=== PATIENT | female | born 2000 ===

== ENCOUNTER 2019-07-25 20:30 | Emergency (ER) | payer OTHER ==
--- NOTE | 2019-07-25 21:25 | UC ---
Complaint Female HPI - HPI Summary HPI Summary: Ms. Vuong was started on Wellbutrin for depression 2 weeks ago. Today she started spotting and she is mid-cycle. Her last menstual period was July 06. She denies any pain. - History Of Current Complaint Chief Complaint: [facility]CGU Stated Complaint: UNUSUAL BLEEDING Time Seen by Provider: 07/25/19 21:08 Hx Obtained From: Patient Hx Last Menstrual Period: [id number] Onset/Duration: Sudden Onset Timing: Constant Severity Initially: Mild Severity Currently: Mild Pain Intensity: 0 Aggravating Factor(s): Nothing Alleviating Factor(s): Nothing Associated Signs And Symptoms: Positive: Negative - Allergies/Home Medications Allergies/Adverse Reactions: Allergies Allergy/AdvReac Type Severity Reaction Status Date / Time No Known Allergies Allergy Verified 07/25/19 20:52 Home Medications: Home Medications Spironolactone TAB* [Aldactone TAB*] 25 mg PO BID 07/25/19 [History Confirmed ] buPROPion TAB* [Wellbutrin TAB*] 75 mg PO DAILY 07/25/19 [History Confirmed 05/05] PMH/Surg Hx/FS Hx/Imm Hx Previously Healthy: Yes - Surgical History Surgical History: Yes Surgery Procedure, Year, and Place: fibroadenoma removal - Social History Alcohol Use: None Substance Use Type: None Smoking Status (MU): Never Smoked Tobacco Review of Systems All Other Systems Reviewed And Are Negative: Yes Constitutional: Positive: Negative Gastrointestinal: Positive: Negative Genitourinary: Positive: Abnormal Bleeding Physical Exam - Summary Physical Exam Summary: She is nontoxic in appearance with stable vitals. Triage Information Reviewed: Yes Appearance: Well-Appearing Vital Signs: Initial Vital Signs Temp 98.4 F 07/25/19 20:49 Pulse 83 07/25/19 20:49 Resp 16 07/25/19 20:49 BP 122/75 07/25/19 20:49 Pulse Ox 99 07/25/19 20:49 Vital Signs Reviewed: Yes Abdominal Exam: Normal Complaint Female Dx - Course Course Of Treatment: She is not on her POC Urinalysis. There is not much else I can do here at the convenient care. She is only a little bit of spotting according to her report and so an H&H probably would not be much help at this point. A review of Wellbutrin makes no mention of potential bleeding disorders. I recommended she continue the Wellbutrin and follow up with Jada next week - Differential Dx/Diagnosis Provider Diagnosis: Vaginal spotting Discharge ED - Sign-Out/Discharge Documenting (check all that apply): Patient Departure All imaging exams completed and their final reports reviewed: No Studies - Discharge Plan Condition: Stable Disposition: HOME Patient Education Materials: Dysfunctional Uterine Bleeding (ED) Referrals: No Primary Care Phys,NOPCP [Primary Care Provider] - [facility] [Outside] - Billing Disposition and Condition Condition: STABLE Disposition: Home
== END 2019-07-25 22:01 | disposition home or self-care (01) ==
LOC: UCEAST 20:30
DX: N93.9 Abnormal uterine and vaginal bleeding, unspecified (principal); F32.9 Major depressive disorder, single episode, unspecified; Z79.899 Other long term (current) drug therapy
CPT/HCPCS: 81003; 84702; 99201; G0463